=== PATIENT | male | born 1950 | race Caucasian/White ===

== ENCOUNTER → 2019-11-09 09:14 | Outpatient (CLI) | payer OTHER, SELFPAY ==
--- NOTE | ~2019-11-09 | MR_ITS ---
EXAMINATION: MR brain/brain stem wo con EXAM DATE: 11/09/2019 10:28 INDICATION: Episodes of double vision. TECHNIQUE: Magnetic resonance imaging (MRI) of the brain/brain stem obtained without contrast. Sagitt al T1, axial diffusion, gradient echo (T2*), T1, T2, FLAIR sequences obtained. There is no prior st udy for comparison. FINDINGS: There are no areas of restricted diffusion to suggest acute infarction. There is no acute hemorrhage seen on the T2*, a hemosiderin sensitive sequence. No intraparenchymal brain mass lesion. 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 There is mild to moderat e prominence of the sulci and ventricles related to cerebral atrophy. There are no extra-axial seth ections. Flow voids are seen in the cerebral arteries on the T2-weighted sequences consistent with t heir expected patency. The orbits are unremarkable. Soft tissue is unremarkable. IMPRESSION: Jgxe-[id number] age-related findings. Reviewed, dictated and finalized at location B. IMPRESSION: [id number] age-related findings.
--- NOTE | ~2019-11-09 | MR_ITS ---
EXAMINATION: MR orbits face neck wo/w con EXAM DATE: 11/09/2019 10:54 INDICATION: Episodes of double vision. TECHNIQUE: Magnetic resonance imaging (MRI) images of the MR orbits face neck wo/w con were obtained. The following sequences were acquired: Noncontrast brain sagittal T1, axial diffusion, gradient ech o, FLAIR, T2, T1 were acquired with the brain MRI obtained at same time. Noncontrast small field-of-v iew orbital coronal T1, coronal T2 fat saturation, axial T1, axial T2. Postcontrast whole brain axial , small hnaph-hy-cprm orbital coronal and axial T1, coronal and axial T1 fat saturation sequences obt ained following injection of 19 mL intravenous MultiHance solution. FINDINGS: The optic nerves are and muscles are symmetric, normal in size, now edema or enhancement. T he retrobulbar fat is clear. Globes are unremarkable. Optic chiasm, suprasellar region is normal. The re are no areas of abnormal enhancement on the post contrast images. IMPRESSION: Normal MRI orbits. Reviewed, dictated and finalized at location B. IMPRESSION: Normal MRI orbits.
[2019-11-09 10:09] LABS: Estimated Glomerular Filt Rate > 60
== END ==
PROVIDERS: PCP Family Medicine; Visit Provider Specialist
DX: H53.8 Other visual disturbances (principal)
CPT/HCPCS: 36415; 70543; 70551; A9577